=== PATIENT | male | born 1965 | race Caucasian/White ===

== ENCOUNTER 2021-01-19 22:58 | Emergency (ER) | payer BC ==
[2021-01-19 23:10] VITALS: TEMP 98.5; BMI 24.7
[2021-01-20] MEDS ORDERED: FAMOTIDINE 20 MG/50 ML IVPB 20 MG/50 ML MG IVPB ONE ×2 (00:16→00:18)
[2021-01-20 01:25] LABS: BASO % 0.9 % (0-2.0); EOS % 10.1 % (0-4.5); HEMATOCRIT 42.9 % (35.4-49); HEMOGLOBIN 14.4 GM/dL (11.7-16.9); LYMPH % 33.8 % (8-40); MCH 28.8 pg (25.7-33.7); MCHC 33.6 g/dl (32.0-35.9); MEAN CELL VOLUME 85.8 fl (80-96); MEAN PLT VOLUME 8.6 fl (7.5-11.1); MONO % 12.5 % (3.8-10.2); NEUT % 42.7 % (42.8-82.8); PLATELET COUNT 156 10^3/uL (134-434); RDW 13.6 % (11.9-15.9); WHITE BLOOD COUNT 5.1 K/mm3 (4.0-10.0)
[2021-01-20 01:56] LABS: CHLORIDE 110 mmol/L (98-107); SODIUM 142 mmol/L (136-145)
[2021-01-20 02:01] LABS: CALCIUM 9.1 mg/dL (8.5-10.1)
[2021-01-20 02:02] LABS: ALBUMIN 3.9 g/dl (3.4-5.0); ANION GAP 6 MMOL/L (8-16); BLOOD UREA NITROGEN 18.1 mg/dL (7-18); CO2 27 mmol/L (21-32); GLUCOSE,RANDOM 86 mg/dL (74-106)
[2021-01-20 02:05] LABS: CREATININE 0.9 mg/dL (0.55-1.3); SGOT/AST 28 U/L (15-37); SGPT/ALT 40 U/L (13-61)
[2021-01-20 02:06] LABS: BILIRUBIN,TOTAL 0.5 mg/dL (0.2-1)
[2021-01-20 02:07] LABS: TOT PROT 7.4 g/dl (6.4-8.2)
[2021-01-20 02:08] LABS: ALK PHOS 67 U/L (45-117)
[2021-01-20 03:16] VITALS: BP 130/94; PULSE 62
== END 2021-01-20 03:22 | disposition home or self-care (01) ==
LOC: FER 22:58
PROC: 3E033GC Introduction of Other Therapeutic Substance into Peripheral Vein, Percutaneous Approach (ICD-10-PCS; principal; 2021-01-19)
DX: R10.13 Epigastric pain (principal)
CPT/HCPCS: 36415; 80053; 82550; 84484; 85025; 93005; 99284-25